=== PATIENT | female | born 2000 | race African-American/Black ===

== ENCOUNTER 2021-03-27 18:15 | Emergency (ER) | payer OTHER ==
[~2021-03-27] VITALS: Ht 162.6 cm; Wt 98.3 kg
[2021-03-27] MEDS ORDERED: EFFE150C2 PO (18:24)
--- NOTE | 2021-03-27 21:18 | REPVR ---
PROCEDURE INFORMATION: Exam: XR Lumbosacral Spine Exam date and time: 03/27/2021 8:26 PM Age: 20 years old Clinical indication: Other: Back pain; Additional info: Low back pain 3 weeks, no known injury TECHNIQUE: Imaging protocol: XR of the lumbosacral spine. Views: 4 or 5 views. COMPARISON: No relevant prior studies available. FINDINGS: Bones/joints: Normal. No acute fracture. Normal alignment. Soft tissues: Unremarkable. IMPRESSION: No acute findings. Electronically signed by: Shawn oRd On 03/27/2021 21:18:21 PM
[2021-03-27 21:47] VITALS: BP 136/82
== END 2021-03-27 21:49 | disposition home or self-care (01) ==
LOC: M ED 18:15
DX: M54.5 Low back pain (principal)